=== PATIENT | female | born 1965 | race Caucasian/White ===

== ENCOUNTER 2021-07-09 16:42 | Inpatient (IN) | payer SELFPAY ==
[2021-07-09 16:54] VITALS: BP 204/99; PULSE 99; RESP 18; TEMP 35.7; O2SAT 96; BMI 34.2
--- NOTE | 2021-07-09 17:51 | ECG_ITS ---
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 Measurements Intervals [place] Rate: 89 P: 70 SD: 170 QRS: 92 QRSD: 96 T: 76 QT: 370 QTc: 453 Interpretive Statements SINUS RHYTHM INDETERMINATE AXIS SEPTAL MYOCARDIAL INFARCTION , OF INDETERMINATE AGE [40+ ms Q WAVE IN V1/V2] Compared to ECG 07/09/2021 16:52:05 Indeterminate axis now present Myocardial infarct finding still present Electronically Signed On 07-10-2021 5:35:44 PLASTER MAKER by Pam Davis M.D. [id number]
--- NOTE | 2021-07-09 17:51 | XRR_ITS ---
PROCEDURE INFORMATION: Exam: XR Chest Exam date and time: 07/09/2021 5:51 PM Age: 56 years old Clinical indication: Chest wall pain; Additional info: Cp TECHNIQUE: Imaging protocol: XR of the chest. Views: 1 view. COMPARISON: No relevant prior studies available. FINDINGS: Lungs: Unremarkable. No consolidation. Pleural spaces: Unremarkable. No pleural effusion. No pneumothorax. Heart/Mediastinum: Mild cardiomegaly. Bones/joints: Unremarkable. XR/XR chest 1V portable [id number] IMPRESSION: 1. Negative for infiltrate 2. Mild cardiomegaly.
--- NOTE | 2021-07-09 17:55 | W.ED.CHESTPA ---
HPI - Chest Pain General: Chief Complaint: Chest Pain Stated Complaint: cp Time Seen by Provider: 07/09/21 17:45 Source: patient Mode of arrival: ambulatory Limitations: no limitations History of Present Illness: 56 yo female that states she has beenhaving increase cough and pain for the last 2 days. she has a hx of copd and cad. SHe states that over the last 2 days she has had increased pain especially withher cough. her pain is in her left chest and is sharp in nature and has been constant. Denies fevers. mild dyspnea. phyllis n/v Associated symptoms: Reports dyspnea; Deny abdominal pain, fever(s), nausea or vomiting Review of Systems Const: Denies: fever(s), chills, body aches or change in appetite Eyes: Denies: blurry vision or eye discomfort ENMT: Denies: throat pain or dental pain Card: Reports: chest pain Resp: Reports: dyspnea and wheezing GI: Denies: abdominal pain, nausea, vomiting or diarrhea : Denies: dysuria Musc: Denies: neck pain or back pain Skin/Breast: Denies: rash Neuro: Denies: headache(s) Psych: Denies: depression Patrick/Lymph: Denies: easy bruising All/Imm: Denies: urticaria PFSH ED PFSH: Medical History COPD (chronic obstructive pulmonary disease) Family History (Updated 07/09/21 @ 17:55 by Hi Reddy MD) Other CAD (coronary artery disease) Physical Exam Const: COMMON NORMALS: no acute distress, patient oriented x3 and healthy appearing HENMT: COMMON NORMALS: normocephalic and atraumatic HEAD & SCALP: normocephalic and atraumatic Eye: COMMON NORMALS: Equal, round and reactive pupils present and EOMs intact bilaterally PUPIL: Yes Equal, round and reactive pupils present Neck/C-Spine: COMMON NORMALS: full ROM and supple Chest: COMMONS NORMALS: normal inspection of the chest; negative for normal palpation of entire chest wall (point tender to left chest) Resp: COMMON NORMALS: normal respiratory effort, No retractions, No use of accessory muscles and clear to auscultation bilaterally AUSCULTATION: clear to auscultation bilaterally Cardio: COMMON NORMALS: regular rate, regular rhythm and No murmurs present (Cardio) RATE: regular rate RHYTHM: regular rhythm GI: COMMON NORMALS: Normal to inspection, nondistended, normoactive bowel sounds present, Soft to palpation, non-tender and no masses PALPATION: Yes Soft to palpation Extremity: COMMON NORMALS: normal to inspection and full ROM Neuro: COMMON NORMALS: patient oriented x3, moves all extremities and no focal motor deficits Psych: COMMON NORMALS: mental status grossly normal, Normal thought process present and cooperative THOUGHT PROCESS: Normal thought process present Skin: COMMON NORMALS: no rashes or lesions noted and no wounds GENERAL SKIN EXAM: no rashes or lesions noted Course Vital Signs: Vital signs: Vital Signs Temperature 96.3 F L 07/09/21 16:54 Pulse Rate 108 H 07/09/21 19:42 Respiratory Rate 18 07/09/21 19:42 Blood Pressure 183/90 07/09/21 19:42 Pulse Oximetry 94 07/09/21 19:42 MDM - Chest Pain Medical Decision Making Patient presents here with chest pain does have elevated troponin here ST depression in her EKG consistent with an NSTEMI. She has no ST elevation she is pain-free currently here after morphine. Spoke to hospitalist along with tobacco grader will admit at this time. Patient given Lovenox. Lab Data : 07/09/21 17:54 07/09/21 17:54 Radiology Impressions Chest X-Ray 07/09/21 17:51 IMPRESSION: 1. Negative for infiltrate 2. Mild cardiomegaly. Chest CTA 07/09/21 18:46 IMPRESSION: 1. Negative for pulmonary embolus or airspace infiltrate. 2. Hepatic steatosis. 3. Emphysematous changes. 4. Minimal coronary artery atherosclerotic calcifications. 5. Cholecystectomy. 6. Scattered prominent mediastinal lymph nodes measuring up to 9 mm, nonspecific. Laboratory Results WBC 11.2 10^3/uL (4.0-10.0) H 07/09/21 17:54 RBC 5.25 10^6/uL (4.1-5.3) 07/09/21 17:54 Hgb 16.5 g/dL (11.5-15.3) H 07/09/21 17:54 Hct 48.3 % (37.0-47.0) H 07/09/21 17:54 MCV 92.0 fl (81-99) 07/09/21 17:54 MCH 31.4 pg (28.0-34.0) 07/09/21 17:54 MCHC 34.2 g/dL (30.0-36.0) 07/09/21 17:54 RDW 13.1 % (12.1-15.1) 07/09/21 17:54 Plt Count 205 10^3/cmm (130-400) 07/09/21 17:54 MPV 10.4 fL (7.4-10.4) 07/09/21 17:54 Neut % (Auto) 73.1 % 07/09/21 17:54 Lymph % (Auto) 21.7 % 07/09/21 17:54 Mcdonough % (Auto) 4.0 % 07/09/21 17:54 Eos % (Auto) 0.4 % 07/09/21 17:54 Baso % (Auto) 0.4 % 07/09/21 17:54 Neut # (Auto) 8.16 10^3/uL (1.8-7.7) H 07/09/21 17:54 Lymph # (Auto) 2.4 10^3/uL (0.8-4.8) 07/09/21 17:54 Mcdonough # (Auto) 0.5 10^3/uL (0.2-0.9) 07/09/21 17:54 Eos # (Auto) 0.0 10^3/uL (0.0-0.8) 07/09/21 17:54 Baso # (Auto) 0.1 10^3/uL (0.0-0.1) 07/09/21 17:54 Nucleated RBC % (auto) 0 % 07/09/21 17:54 Nucleated RBCs # 0.0 /100WBC 07/09/21 17:54 Sodium 134 mmol/L (136-145) L 07/09/21 17:54 Potassium 4.5 mmol/L (3.5-5.1) 07/09/21 17:54 Chloride 95 mmol/L (98-107) L 07/09/21 17:54 Carbon Dioxide 23 mmol/L (22-29) 07/09/21 17:54 Anion Gap 20.5 (5-19) H 07/09/21 17:54 BUN 11 mg/dL (6-20) 07/09/21 17:54 Creatinine 0.7 mg/dL (0.5-0.9) 07/09/21 17:54 GFR Calculation 86.9 mL/min (90-130) L 07/09/21 17:54 Glucose 239 mg/dL (65-115) H 07/09/21 17:54 Calculated Osmolality 285 mOsm/kg (285-295) 07/09/21 17:54 Calcium 10.1 mg/dL (8.5-10.5) 07/09/21 17:54 Total Bilirubin 0.3 mg/dL (0.15-1.2) 07/09/21 17:54 AST 39 U/L (0-32) H 07/09/21 17:54 ALT 29 U/L (0-33) 07/09/21 17:54 Alkaline Phosphatase 66 IU/L (35-105) 07/09/21 17:54 Troponin T Baseline 178 ng/L (0-10) H* 07/09/21 17:54 Total Protein 8.0 g/dL (6.6-8.7) 07/09/21 17:54 Albumin 4.9 g/dL (3.5-5.2) 07/09/21 17:54 Globulin 3.1 g/dL (1.3-4.6) 07/09/21 17:54 EKG Data EKG 1: I personally reviewed and interpreted this EKG as follows: EKG interpretation date: 07/09/21 EKG interpretation time: 17:25 Interpretation: nsr hr [address] diffuse st depression qrs 96 qtc 417 EKG 2: I personally reviewed and interpreted this EKG as follows: EKG interpretation date: 07/09/21 EKG interpretation time: 19:18 Interpretation: sinus tach hr [address] diffuse st depression qrs 73 qtc 417 Discharge Plan Discharge Patient Disposition: Admitted As Inpatient Clinical Impression: Non-ST elevation MT (NSTEMI) Condition: Stable Referrals: John Chavez FNP [Primary Care Provider] - Coding Level of Care Code ED Manager Multimedia for Chg Fwd Exam Comprehensive
[2021-07-09 18:00] LABS: Basophils # 0.1 10^3/uL (0.0-0.1); Basophils % 0.4 %; Eosinophils % 0.4 %; Hematocrit 48.3 % (37.0-47.0); Hemoglobin 16.5 g/dL (11.5-15.3); Lymphocytes # 2.4 10^3/uL (0.8-4.8); Lymphocytes % 21.7 %; Mean Corpuscular HGB Conc 34.2 g/dL (30.0-36.0); Mean Corpuscular Hemoglobin 31.4 pg (28.0-34.0); Mean Platelet Volume 10.4 fL (7.4-10.4); Monocytes # 0.5 10^3/uL (0.2-0.9); Neutrophils # 8.16 10^3/uL (1.8-7.7); Neutrophils % 73.1 %; Nucleated Red Blood Cells % 0 %; Platelet Count 205 10^3/cmm (130-400); Red Blood Count 5.25 10^6/uL (4.1-5.3); Red Cell Distribution Width 13.1 % (12.1-15.1); White Blood Count 11.2 10^3/uL (4.0-10.0)
[2021-07-09 18:17] LABS: Alanine Aminotransferase 29 U/L (0-33); Albumin Level 4.9 g/dL (3.5-5.2); Alkaline Phosphatase 66 IU/L (35-105); Anion Gap 20.5 (5-19); Aspartate Amino Transferase 39 U/L (0-32); Blood Urea Nitrogen 11 mg/dL (6-20); Calcium 10.1 mg/dL (8.5-10.5); Carbon Dioxide 23 mmol/L (22-29); Chloride 95 mmol/L (98-107); Globulin 3.1 g/dL (1.3-4.6); Glomerular Filtration Rate 86.9 mL/min (90-130); Glucose 239 mg/dL (65-115); Osmolality Calculated 285 mOsm/kg (285-295); Potassium 4.5 mmol/L (3.5-5.1); Sodium 134 mmol/L (136-145); Total Bilirubin 0.3 mg/dL (0.15-1.2)
[2021-07-09 18:32] VITALS: RESP 16
[2021-07-09] MEDS: morphine 4 mg/mL SDV 1 mL IVP (18:32)
[2021-07-09] MEDS: hyDRALAzine 20 mg/mL INJ 1 mL 10 MG IVP (18:32)
[2021-07-09] MEDS: ondansetron 2 mg/ML SDV 2 mL 4 MG IVP (18:33)
[2021-07-09 18:36] LABS: Troponin(5th) Baseline 178 ng/L (0-10)
[2021-07-09 18:44] VITALS: PULSE 98; RESP 20; O2SAT 98
--- NOTE | 2021-07-09 18:46 | CTR_ITS ---
PROCEDURE INFORMATION: Exam: CTA Chest With Contrast Exam date and time: 07/09/2021 6:46 PM Age: 56 years old Clinical indication: Shortness of breath; Sternal or substernal pain; Prior surgery; Surgery type: Gb; Additional info: SOB TECHNIQUE: Imaging protocol: Computed tomographic angiography of the chest with contrast. 3D rendering (Not supervised by radiologist): MIP and/or 3D reconstructed images were created by the technologist. Radiation optimization: All CT scans at this facility use at least one of these dose optimization techniques: automated exposure control; mA and/or kV adjustment per patient size (includes targeted exams where dose is matched to clinical indication); or iterative reconstruction. Contrast material: OMNI 350; Contrast volume: 64 ml; Contrast route: INTRAVENOUS (IV); COMPARISON: CR (CHEST, ) 07/09/2021 6:18 PM RADIATION DOSE METRICS: Total DLP (mGy-cm): 579.34 FINDINGS: Pulmonary arteries: Normal. No pulmonary emboli. Aorta: Unremarkable. No aortic aneurysm. No aortic dissection. Lungs: Emphysematous changes. Pleural spaces: Unremarkable. No pneumothorax. No pleural effusion. Heart: Minimal coronary artery atherosclerotic calcifications. Lymph nodes: Scattered prominent mediastinal lymph nodes measuring up to 9 mm, nonspecific. Liver: Hepatic steatosis. Gallbladder and bile ducts: Cholecystectomy. Bones/joints: Unremarkable. No acute fracture. Soft tissues: Unremarkable. CT/CT angio chest PE protcl [id number] IMPRESSION: 1. Negative for pulmonary embolus or airspace infiltrate. 2. Hepatic steatosis. 3. Emphysematous changes. 4. Minimal coronary artery atherosclerotic calcifications. 5. Cholecystectomy. 6. Scattered prominent mediastinal lymph nodes measuring up to 9 mm, nonspecific.
[2021-07-09] MEDS: iohexol 350 mg/mL 100 mL Btl IV (19:10)
[2021-07-09 19:42] VITALS: BP 183/90; PULSE 108; RESP 18; O2SAT 94
--- NOTE | 2021-07-09 19:51 | ECG_ITS ---
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 Measurements Intervals [place] Rate: 96 P: 74 IN: 152 QRS: 140 QRSD: 95 T: 74 QT: 376 QTc: 475 Interpretive Statements SINUS RHYTHM POSSIBLE RIGHT VENTRICULAR HYPERTROPHY [SOME/ALL OF: PROMINENT R IN V1, LATE TRANSITION, RAD, SANJAY, SSS] SEPTAL MYOCARDIAL INFARCTION , PROBABLY OLD [40+ ms Q WAVE IN V1/V2] No previous ECG available for comparison Electronically Signed On 07-10-2021 5:48:16 LEGAL EDITOR by Pam Davis M.D. [id number]
[2021-07-09] MEDS: labetalol 5 mg/mL SDV 20mL 10 MG IVP (19:56)
[2021-07-09] MEDS: aspirin 81 mg Chew Tablet 324 MG PO (19:56)
[2021-07-09] MEDS: enoxaparin 80 mg/0.8 mL Syringe SUBCUT (19:56)
[2021-07-09 21:09] LABS: NT Pro B Type Natriuretic Pept 1361 pg/mL (0-125); Thyroid Stimulating Hormone 1.32 uIU/mL (0.27-4.20)
[2021-07-09 21:29] VITALS: BP 144/94; PULSE 73; RESP 18; O2SAT 96
[2021-07-09 21:51] LABS: Troponin 5 2HR 247.2 ng/L (0-10); Troponin 5 2HR Delta 69.2 ABS# (0-10)
--- NOTE | 2021-07-09 22:25 | ECG_ITS ---
[facility] Test Date: 2021-07-09 Pat Name: Allie Ellis Department: Room: 112 Gender: Female Can Reconditioner: : 1965 Requested By: Mohit Morrow Order Number: [id number] Evelyn MD: Spenser Schneider M.D. Measurements Intervals [place] Rate: 107 P: 50 MD: 144 QRS: 17 QRSD: 90 T: 81 QT: 360 QTc: 481 Interpretive Statements SINUS TACHYCARDIA INDETERMINATE AXIS ANTEROSEPTAL MYOCARDIAL INFARCTION , OF INDETERMINATE AGE [40+ ms Q WAVE IN V1-V4] Compared to ECG 07/09/2021 19:18:35 ST (T wave) deviation no longer present Myocardial infarct finding still present Electronically Signed On 07-10-2021 16:01:20 LINTER OPERATOR by Spenser Schneider M.D. [id number]
--- NOTE | 2021-07-09 22:29 | P.HP_ITS ---
Providers/Chief Complaint Admitting Physician: Jimmy Rasmussen MD Primary Care Provider: John Chavez Chief Complaint: cp History of Present Illness The patient is a 56-year-old female who presented to the chief complaint of chest pain which started approximate 8 PM on the very . She states that she was walking in [facility] when it was of gradual onset. She states that she h ad accompanying nausea. She states that the chest pain was localized to the substernal area with radiation to her back as well as her left arm. She describes the pain as sharp and pressure. Since the time of onset it has been intermittent. As worst is rated 8 out of 10 and currently rates 2 out of 10. She states that she took Tylenol which did not improve the pain. She admits to dyspnea, lightheadedness, dizziness, diaphoresis, palpitations with the chest pain. She denies a sensation of rapid heartbeat or sensation of irregular heartbeat. Patient has known history of coronary artery disease but she denies a previous history of SC. She presents for further evaluation Review of Systems General: Reports: 10 or more systems reviewed and unremarkable except in HPI and below Medications/Allergies Home Medications Medication Instructions Recorded Confirmed Last Taken Type Symbicort 07/09/21 07/09/21 02:00 History atenolol 25 mg tablet mg 07/09/21 07/08/21 21:00 History azelastine 137 mcg (0.1 %) nasal INTRANASAL 07/09/21 07/08/21 21:00 History spray aerosol budesonide-formoterol HFA 160 INHALATION 07/09/21 Unknown History mcg-4.5 mcg/actuation aerosol inhaler hydrochlorothiazide 25 mg tablet mg 07/09/21 07/08/21 21:00 History meloxicam 15 mg tablet mg 07/09/21 07/08/21 21:00 History montelukast 10 mg tablet mg 07/09/21 07/08/21 21:00 History PFSH Acute PFSH: Medical History (Updated 07/09/21 @ 22:36 by Mohit Morrow DO) COPD (chronic obstructive pulmonary disease) Non-ST elevation SC (NSTEMI) Family History Other CAD (coronary artery disease) Vitals/I&O/Wt Last Vital Signs Temp 96.3 F L 07/09/21 16:54 Pulse 73 07/09/21 21:29 Resp 18 07/09/21 21:29 BP 144/94 07/09/21 21:29 Pulse Ox 96 07/09/21 21:29 Weight last 48 hrs Weight 79.379 kg Physical Exam Const: COMMON NORMALS: no acute distress, average body habitus, patient oriented x3, no limitations, healthy appearing, alert and well nourished HENMT: COMMON NORMALS: normocephalic and atraumatic NOSE: Normal external nose present and Normal nares present EXTERNAL EAR: Yes external ears normal MOUTH: Normal oral and palatal mucosa present, lip normal and tongue normal Eye: COMMON NORMALS: Equal, round and reactive pupils present, EOMs intact bilaterally, conjunctivae normal, no scleral icterus, no papilledema, normal visual [place] by confrontation and fundi normal bilaterally GENERAL EYE: appearance normal, both eyes and all related structures VISUAL ACUITY: Yes acuity normal Neck/C-Spine: COMMON NORMALS: full ROM, no lymphadenopathy, supple, no meningeal signs, no JVD, Thyroid normal and No carotid bruits Chest: COMMONS NORMALS: normal inspection of the chest, normal palpation of entire chest wall, normal inspection of the breasts and normal palpation of the breasts Resp: COMMON NORMALS: normal respiratory effort, No retractions, No use of accessory muscles, clear to auscultation bilaterally and percussion normal Cardio: COMMON NORMALS: no JVD, regular rate, regular rhythm, S1 normal heart sound present, S2 normal heart sound present, No gallops present (Cardio), No clicks present (Cardio), No murmurs present (Cardio), No rub (Cardio) and Peripheral pulses 2+ throughout GI: COMMON NORMALS: Normal to inspection, nondistended, normoactive bowel sounds present, Soft to palpation, non-tender, No hepatosplenomegaly present, no masses and no bruits : COMMON NORMALS: Yes no CVA tenderness, Yes normal external appearance, Yes normal appearance of the vagina, Yes normal appearance of the cervix, Yes normal bimanual exam, Yes No adnexal tenderness and Yes no masses Back/Pelvis: COMMON NORMALS: no CVA tenderness, thoracic and lumbar spine normal to inspection, no thoracic nor lumbar tenderness, thoraco-lumbar ROM normal and straight leg raise negative bilaterally Extremity: COMMON NORMALS: normal to inspection, full ROM, capillary refill normal, no joint enlargement, no clubbing, cyanosis or edema, no calf tenderness and no pedal edema GENERAL: Yes normal exam except as noted Neuro: COMMON NORMALS: patient oriented x3, CN's II-XII intact bilaterally, moves all extremities, no focal motor deficits, no sensory deficits noted, deep tendon reflexes 2+ bilaterally and gait normal DEEP TENDON REFLEXES: Right triceps reflex intensity grade: 2+, Left triceps reflex intensity grade: 2+, Rt Biceps (C5, C6): 2+, Left biceps reflex intensity grade: 2+, Right brachioradialis reflex intensity grade: 2+, Left brachioradialis reflex intensity grade: 2+, Right patellar reflex intensity grade: 2+, Left patellar reflex intensity grade: 2+, Right ankle reflex intensity grade: 2+ and Left ankle reflex intensity grade: 2+ PUPIL EXAM: Normal pupillary reactivity/response: bilateral, Dilated: bilateral, Pinpoint: bilateral, Mid position: bilateral, Sluggish: bilateral and Fixed/non-reactive: bilateral Psych: COMMON NORMALS: mental status grossly normal, Normal thought process pr esent, cooperative, normal affect, speech normal, activity/motor behavior normal, denies hallucinations, denies homicidal ideation and denies suicidal ideation Skin: COMMON NORMALS: no rashes or lesions noted, no wounds, turgor normal, no jaundice, no petechiae and no mottling Data : 07/09/21 17:54 07/09/21 17:54 A&P Assessment and plan (1) Non-ST elevation SC (NSTEMI): Status: Acute Plan And STEMI. Will monitor patient on telemetry and checks her cardiac enzymes. Magnesium level pending. Check TSH, free T4. In the morning we will recheck EKG and check fasting lipid panel. Aspirin 81 Mill grams by mouth daily plus Lipitor 80 Mill grams by mouth daily at bedtime plus Plavix any 5 Mill grams by mouth daily plus metoprolol XL 25 mg by mouth daily plus Lovenox 80 Mill grams subcutaneously twice a day. Cardiology consult pending History of migraine Mediastinal lymphadenopathy. Outpatient follow up with her primary care physician to schedule CT chest with IV contrast 2 months post discharge Hepatic steatosis Erythrocytosis. Likely sequelae of a history of COPD/smoking. Will monitor hem oglobin level intermittently COPD, not O2 dependent Urinary artery disease. Aspirin 81 Mill grams by mouth daily plus Lipitor 80 Mill grams by mouth daily at bedtime plus Plavix 25 Mill grams by mouth daily plus metoprolol XL 25 Mill grams by mouth daily Diabetes. Will check fasting glucose every before meals and at bedtime and provide insulin sliding scale Hypertension/hypertensive emergency. Metoprolol XL 25 Mill grams by mouth daily Obesity. The patient becomes regarding lifestyle modification Smoker. The patient becomes regarding smoking cessation DVT Proflex is. Lovenox 80 mg subcu tensely twice a day Attestations Medical Necessity Statement*: Hospitalization is medically necessary Coding Level of Care Code Acute Construction Equipment Operator for Mauro Taylor Diagnoses Non-ST elevation SC (NSTEMI) I21.4
[2021-07-09 22:58] LABS: Free T4 Free Thyroxine 1.13 ng/dL (0.82-1.77); Thyroid Stimulating Hormone 1.06 uIU/mL (0.27-4.20)
[2021-07-09 23:00] VITALS: BP 156/85; PULSE 113; RESP 18; O2SAT 95
[2021-07-09 23:08] LABS: Glucose Point of Care 416 mg/dL (70-110)
[2021-07-09] MEDS: clopidogrel 300 mg Tablet PO (23:17)
[2021-07-09] MEDS: insulin lispro 100 unit/1 mL SUBCUT (23:17)
--- NOTE | 2021-07-09 23:51 | ECG_ITS ---
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 Measurements Intervals [place] Rate: 109 P: 72 MT: 152 QRS: 68 QRSD: 73 T: 77 QT: 353 QTc: 476 Interpretive Statements SINUS TACHYCARDIA INDETERMINATE AXIS SEPTAL MYOCARDIAL INFARCTION , OF INDETERMINATE AGE [40+ ms Q WAVE IN V1/V2] ST DEPRESSION, CONSIDER SUBENDOCARDIAL INJURY [0.1+ mV ST DEPRESSION] Compared to ECG 07/09/2021 17:25:12 ST (T wave) deviation now present Sinus rhythm no longer present Myocardial infarct finding still present Electronically Signed On 07-10-2021 5:45:26 X RAY EQUIPMENT SERVICER by Pam Davis M.D. [id number]
[2021-07-09 23:56] LABS: Troponin 5 6HR 330.7 ng/L (0-10); Troponin 5 6HR Delta 152.7 ng/L (0-12)
[2021-07-10] VITALS (27 sets, daily range): BP systolic 94–158; BP diastolic 62–92; PULSE 85–112; RESP 14–33; TEMP 36.1–37.1; O2SAT 90–96; BMI 31.2
[2021-07-10 04:02] LABS: Basophils % 0.3 %; Hematocrit 46.3 % (37.0-47.0); Hemoglobin 15.7 g/dL (11.5-15.3); Lymphocytes # 1.4 10^3/uL (0.8-4.8); Lymphocytes % 12.8 %; Mean Corpuscular HGB Conc 33.9 g/dL (30.0-36.0); Mean Corpuscular Hemoglobin 31.4 pg (28.0-34.0); Mean Corpuscular Volume 92.6 fl (81-99); Mean Platelet Volume 10.8 fL (7.4-10.4); Monocytes # 0.1 10^3/uL (0.2-0.9); Monocytes % 0.9 %; Neutrophils # 9.46 10^3/uL (1.8-7.7); Neutrophils % 85.6 %; Nucleated Red Blood Cells % 0 %; Platelet Count 201 10^3/cmm (130-400); Red Cell Distribution Width 13.2 % (12.1-15.1)
[2021-07-10 04:21] LABS: Chol HDL Ratio 6.53 mg/dL (0.0-4.40); Cholesterol 294 mg/dL (0-200); HDL Cholesterol 45 mg/dL (60-100); Triglycerides 449 mg/dL (0-150)
--- NOTE | 2021-07-10 04:25 | ECG_ITS ---
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 Measurements Intervals [place] Rate: 100 P: 65 NE: 186 QRS: 18 QRSD: 89 T: 88 QT: 375 QTc: 484 Interpretive Statements SINUS TACHYCARDIA POSSIBLE LEFT ATRIAL ENLARGEMENT [-0.1mV P-WAVE IN V1/V2] INDETERMINATE AXIS POSSIBLE RIGHT VENTRICULAR CONDUCTION DELAY [RSR (QR) IN V1/V2] SEPTAL MYOCARDIAL INFARCTION , OF INDETERMINATE AGE [40+ ms Q WAVE IN V1/V2] Compared to ECG 07/09/2021 23:32:11 No significant changes Electronically Signed On 07-10-2021 16:06:32 STRUCTURAL FITTER by Spenser Schneider M.D. [email or web address] [email or web address] Throttle Gamesun[email or web address]/[id number]
[2021-07-10 04:33] LABS: Blood Urea Nitrogen 14 mg/dL (6-20); Calcium 10.3 mg/dL (8.5-10.5); Carbon Dioxide 19 mmol/L (22-29); Chloride 97 mmol/L (98-107); Glomerular Filtration Rate 74.5 mL/min (90-130); Glucose 314 mg/dL (65-115); Magnesium 1.8 mg/dL (1.7-2.3); Osmolality Calculated 296 mOsm/kg (285-295); Sodium 137 mmol/L (136-145)
--- NOTE | 2021-07-10 04:37 | USCV_ITS ---
Caleb Allie Age: 56 Gender: F : 1965 Exam Date: 07/10/2021 06:22 Ordering Phys: Jimmy Rasmussen MD Technologist: Brian Persaud [place] [facility] [place]: [place] BP: 134 / 82 HR: 100 Rhythm: Sinus Technical Quality: Adequate MEASUREMENTS (Male / Female) Normal Values 2D ECHO LV Diastolic Diameter PLAX 3.4 cm 4.2 - 5.9 / 3.9 - 5.3 cm LV Systolic Diameter PLAX 2.3 cm IVS Diastolic Thickness 1.0 cm 0.6 - 1.0 / 0.6 - 0.9 cm IVS Systolic Thickness 1.6 cm LVPW Diastolic Thickness 0.9 cm 0.6 - 1.0 / 0.6 - 0.9 cm LVPW Systolic Thickness 1.4 cm LVOT Diameter 2.1 cm LV Ejection Fraction 2D Teich 62.9 % LV Ejection Fraction MOD 2C 73.0 % LV Ejection Fraction 2C AL 73.0 % LA Diameter 3.0 cm Aorta at Sinotubular Diameter 2.1 cm M-MODE LV Diastolic Diameter MM 3.1 cm 4.2 - 5.9 / 3.9 - 5.3 cm LV Systolic Diameter MM 1.9 cm LV Ejection Fraction MM Teich 70.6 % IVS Diastolic Thickness MM 1.3 cm 0.6 - 1.0 / 0.6 - 0.9 cm IVS Systolic Thickness MM 1.8 cm LVPW Diastolic Thickness MM 1.4 cm 0.6 - 1.0 / 0.6 - 0.9 cm LVPW Systolic Thickness MM 2.1 cm RV Diastolic Diameter MM 2.3 cm Aortic Annulus Diameter 2.5 cm LA Ao Ratio MM 1.3 MV E Point Septal Separation 1.3 cm DOPPLER AV Peak Velocity 177.7 cm/s LVOT Peak Velocity 107.0 cm/s AV Area Cont Eq vti 1.8 cm squared AV Area Cont Eq pk 2.0 cm squared MV Area PHT 5.0 cm squared Mitral E to A Ratio 0.6 MV E' Velocity 54.8 cm/s Mitral E to MV E' Ratio 8.5 Mitral E to LV E' Lateral Ratio 8.6 Mitral E to LV E' Septal Ratio 8.3 TR Peak Velocity 200.3 cm/s TR Peak Gradient 16.1 mmHg TV Peak E Velocity 63.0 cm/s Right Atrial Pressure 3.0 mmHg Pulmonary Artery Systolic Pressu 19.1 mmHg PV Peak Velocity 136.0 cm/s FINDINGS Left Ventricle Normal left ventricular size and systolic function, EF 68 %. No regional wall motion abnormalities. Mild left ventricular hypertrophy. Grade I/IV diastolic dysfunction (abnormal relaxation filling pattern), normal to mildly elevated filling pressures. Right Ventricle The right ventricle is normal in size and function. Right Atrium The right atrium is normal in size. Left Atrium The left atrium is normal in size. Mitral Valve Thickened mitral valve. Trace mitral valve regurgitation. Aortic Valve Thickened aortic valve. Tricuspid Valve No gross abnormalities noted Pulmonic Valve Pulmonic valve not well visualized. Pericardium Normal pericardium without effusion. Aorta Normal ascending aorta dimension. CONCLUSIONS Normal left ventricular size and systolic function, EF 68 %. No regional wall motion abnormalities. Mild left ventricular hypertrophy. Grade I/IV diastolic dysfunction (abnormal relaxation filling pattern), normal to mildly elevated filling pressures. Thickened mitral valve. Trace mitral valve regurgitation. Thickened aortic valve. There is no pericardial effusion. There are no intracardiac masses. The right-sided structures could not be visualized well No previous study is available for comparison. Dr Bernardino Mckinley MD [facility] (Electronically Signed) Final Date: 10 July 2021 14:07 S
[2021-07-10 04:48] LABS: Anion Gap 25.2 (5-19); Potassium 4.2 mmol/L (3.5-5.1)
[2021-07-10 05:05] LABS: LDL Cholesterol Direct 180 mg/dL (0-100)
--- NOTE | 2021-07-10 05:51 | PC.NURSE ---
pt transferred from ED at about 2145. pt rested quietly remainder of shift. no complaints of pain. NPO since midnight. VSS. pt up to bathroom with standby assist. adequate UOP. frequent rounding done. all needs met.
[2021-07-10 07:03] LABS: Glucose Point of Care 280 mg/dL (70-110)
--- NOTE | 2021-07-10 08:14 | XACV_ITS ---
Exam Room: 2 Ht: 152 cm Wt: 73 kg BSA: 1.78 m2 Gender: Female : 1965 Any Known Allergies: Other Exam Priority: Routine Procedure(s): Procedure Description: Diagnostic procedure Procedure Description: PCI procedure Procedure Description: Drug Eluting Coronary Stent Procedure Description: PTCA Procedure Description: Miscellaneous Procedure Description: ACT Procedure Description: Coronary Angiography Diagnostic Cath Status: Urgent Diagnostic Findings * Mid Circumflex/ OM 1: moderate 50% stenosis, ONI: 3 flow. * INDICATION: NSTEMI. * Left Main has no disease. * Left Anterior Descending has no disease. * Mid Right Coronary Artery: moderate 50% stenosis, ONI: 3 flow. * Proximal Circumflex: severe 90% stenosis, ONI: 3 flow. * Coronary angiography shows right dominance. PCI Status: Urgent PCI Indication: NSTE - ACS Interventional Findings * Procedure Note: We engaged left main artery with XB 3.0 guide catheter. 0.014 run-through guidewire was used to cross the stenosis in proximal left circumflex artery and was put on distal vessel. We predilated the stenosis with 2.5 x 12 mm compliant balloon. This was followed by placement of 3.5 x 18 mm resolute [place] drug-eluting stent. This time final angiogram was performed that showed excellent stent expansion, no residual stenosis and ONI-3 flow. Guidewire and guide catheter were removed. Patient left the Doll Eye Setter in a stable condition.. * Proximal Circumflex: 90% stenosis treated with a AB TREK 2.50X12 RX BALLOON, and MDT R [place] 3.5X18 NICO. 0% residual stenosis, ONI: 3 flow. Conclusions 1. Severe proximal left circumflex artery stenosis status post revascularization with NICO x1.. 2. Moderate mid RCA and OM1 stenosis. Medical management for those at this time. 3. Proximal Circumflex was treated with a Balloon, and Drug Eluting Stent. Recommendations * Aspirin and Plavix for at least 1 year. * Aggressive risk factor modification. * Smoking cessation advised. * High intensity statin therapy. * Mid RCA and OM1 stenosis are moderate. Will be managed medically at this time. If patient continues having symptoms, can consider outpatient stress test. * Cardiology follow-up as outpatient in 4 weeks. Interventional RX Recommendation: PCI w/o planned CABG Diagnostic RX Recommendation: PCI w/o planned CABG Anticoagulation: Heparin Pressures Phase:Rest AO : 119 / 74 ( 95 ) @ 12:26:00 PM Clinical Evaluation EBL: 5mL-10mL Procedural Details Procedure Consent Obtained. Admit Source: In Patient. Pre-Procedure Time Out. Identified patient by full name and date of as verbalized by the patient/guarantor. Does the consent match the physician's order: Yes. Accurate & Complete Informed Consent: Yes. Inpatient/Outpatient History & Physical on Chart: Yes. If H&P is completed, is and addenduem needed: No; If yes, is the addendum complete: No. Visualize and Verify Site with Patient/Guarantor: N/A. Relevant Radiology Images available: No. The risks, benefits, and alternatives of sedation and/or procedure were discussed by physician. The patient agrees to continue. Procedure started. [facility] Clinical Fraility Score: 2: Well. Doll Eye Setter Indications: Nstemi. Chest Pain Symptom Assessment: Typical Angina Symptoms. Correct patient, site and procedure confirmed by cath team. Current diagnosis: NSTEMI. PERRLA. Strong, equal hand tree topper bilaterally. Lungs clear x 5 lobes. IV Site on Arrival: 20 gauge in the left anticubital. IV Fluids: 0.9% NaCl at KVO. 0 mL infused prior to labor and delivery registered nurse. Pre Procedural Pulses: bilateral radial was 3+. Oxygen started at 2liters/min via nasal canula. right radial was prepped with chloroprep then draped in the usual sterile fashion. Physician notified. Baseline sample Acquired. HR: 91 BPM. Physician arrived. Physician scrubbed in. Immediate Pre-Procedure Time Out. Correct Patient: Yes; Correct Procedure: Yes; Correct Site: Yes; Correct Patient Position: Yes; Correct Supplies: Yes; Dried Flammable Prep: Yes; Blood Products Available: No;. Lidocaine 1% infiltrated to the right radial. Arterial access obtained. A 5 polish TIG catheter in over wire. Multiple views taken of left coronary artery. Catheter removed over the glidewire. A 5 polish JR4 catheter in over wire. Catheter redirected to the RCA. Multiple views taken of right coronary artery. Catheter removed over the glide wire. 6 polish XB 3 guide catheter was inserted over the wire. Runthrough guidewire was advanced through the guide catheter to lesion in the mid Circ. Guidewire advanced across lesion. Balloon inserted to lesion in the mid Circ. Inflation number: 1 The AB TREK 2.50X12 RX BALLOON was reinflated across the Prox CX, to 12 SAL for 0:03 seconds. Inflation number: 2 The AB TREK 2.50X12 RX BALLOON was reinflated across the Prox CX, to 12 SAL for 0:20 seconds. Inflation number: 3 The AB TREK 2.50X12 RX BALLOON was reinflated across the Prox CX, to 12 SAL for 0:11 seconds. Balloon out. Stent inserted to lesion in the mid Circ. Inflation Number : 4 Paola Hollis [place] 3.5X18 NICO -Lot Number# was prepped and advanced across the Prox CX. The stent was deployed at 12 SAL for 0:24 seconds. Stent balloon out over wire. Angiography performed. Results checked. Runthrough wire out. Angiography performed. ACT drawn. Results 256 seconds. Therapeutic limits - pre-heparin administration 90-150 seconds and monitoring heparin during a vascular procedure >250 seconds. Guide catheter out over standard wire. Standard wire out. A TR Band was successful obtaining hemostatsis at the Right Radial artery insertion site. Post Procedure: Pulses reassessed and unchanged. PERRLA. Strong, equal hand tree topper bilaterally. No VTE prophylaxis required. Medication's Wasted: Lidocaine 1% = 18 mL. Medication's Wasted: Heparin = 3000 unit. Medication's Wasted: Nitro = 49.8 mg. Medication's Wasted: Benadryl = 25 mg. Total IV fluids: 40 mL. PCI Indication: Nstemi, Severe proximal circumflex stenosis. Post-op diagnosis: Severe proximal circumflex stenosis. Complications: None. Estimated blood loss: 5mL-10mL. Responsiveness - Normal response to verbal stimuli; alert and oriented, PERRLA. Airway - Unaffected, no intervention required; spontaneous ventilation. Circulation: W/N/L, pulses unchanged. Nausea/Vomiting: No. Procedure completed. Patient transferred by wheelchair to 1st floor. Access Site Site: Right Radial artery Sheath Size: 6 Fr Hemostasis Method: TR Band Hemostasis Success: Successful Procedure Medications Start: 12:05 PM Stop: 12:05 PM Medication: Diphendryamine Amount: 25 mg Route: I.V. Start: 12:09 PM Stop: 12:09 PM Medication: Versed Amount: 1 mg Route: I.V. Start: 12:09 PM Stop: 12:09 PM Medication: Fentanyl Amount: 50 mcg Route: I.V. Start: 12:12 PM Stop: 12:12 PM Medication: Versed Amount: 1 mg Route: I.V. Start: 12:12 PM Stop: 12:12 PM Medication: Fentanyl Amount: 50 mcg Route: I.V. Start: 12:12 PM Stop: 12:12 PM Medication: Nitrogylcerin Amount: 200 mcg Start: 12:13 PM Stop: 12:13 PM Medication: Heparin Amount: 5000 units Route: I.V. Start: 12:21 PM Stop: 12:21 PM Medication: Heparin Amount: 3000 units Route: I.V. I, the attending physician, have reviewed and verified all procedure medications. Yes, all medications given per verbal order History/Risk Factors Hypertension: Yes Dyslipidemia: No Peripheral Arterial Disease (PAD): No Myocardial Infarction (NC): No Obesity: No Renal Disease: No Tobacco Use: Never Prior Interventions PCI: Yes CABG: Yes Valve Surgery: No Report Signatures Finalized by Spenser Schneider MD on 07/15/2021 12:15 PM
--- NOTE | 2021-07-10 08:26 | PM.CONSULT ---
Providers/Reason For Consult Consulting Physician/Specialty*: Spenser Schneider MD/Cardiology Reason for Consult*: NSTEMI Requesting Physician: Dr Reddy Attending Physician: Radu Rodriguez MD Primary Care Provider: John Cahvez History of Present Illness History of Present Illness Allie Ellis is a 56 year old female with past medical history of hypertension and diabetes has presented with 1 day of chest discomfort. According to patient she was walking in the [employer] night before her presentation when started feeling substernal chest pressure radiating to the left arm. It eased on rest however never went away. She came to the emergency room there with the initial troponin was 178. At 6 hours a trended up to 330. EKG shows diffuse ST depressions. She is chest pain-free at this time. No prior history of cardiac disease however has significant family history of premature CAD. Review of Systems Const: Denies: fever(s), chills, body aches or change in appetite Eyes: Denies: blurry vision or eye discomfort ENMT: Denies: throat pain or dental pain Card: Reports: chest pain Resp: Reports: dyspnea and wheezing GI: Denies: abdominal pain, nausea, vomiting or diarrhea : Denies: dysuria Musc: Denies: neck pain or back pain Skin/Breast: Denies: rash Neuro: Denies: headache(s) Psych: Denies: depression Patrick/Lymph: Denies: easy bruising All/Imm: Denies: urticaria Medications/Allergies Home Medications Medication Instructions Recorded Confirmed Last Taken Type Symbicort 1 puff INHALATION DAILY 07/09/21 07/10/21 07/09/21 02:00 History atenolol 25 mg tablet 25 mg PO DAILY 07/09/21 07/09/21 07/08/21 21:00 History azelastine 137 mcg (0.1 %) nasal 2 spray INTRANASAL BID 07/09/21 07/09/21 07/08/21 21:00 History spray aerosol budesonide-formoterol HFA 160 2 puff INHALATION DIRECTED PRN 07/09/21 07/09/21 Unknown History mcg-4.5 mcg/actuation aerosol inhaler hydrochlorothiazide 25 mg tablet 25 mg PO DAILY 07/09/21 07/09/21 07/08/21 21:00 History meloxicam 15 mg tablet 25 mg PO DAILY 07/09/21 07/09/21 07/08/21 21:00 History montelukast 10 mg tablet 10 mg PO DAILY 07/09/21 07/09/21 07/08/21 21:00 History sumatriptan succinate 50 mg tablet 50 mg PO DIRECTED PRN 07/09/21 07/09/21 07/09/21 History 0900 Allergies Allergy/AdvReac Type Severity Reaction Status Date / Time amoxicillin Allergy ALGY-Rash Verified 07/10/21 00:24 Current Medications Generic Name Dose Route Start Last Admin Trade Name Derrick PRN Reason Stop Dose Admin Insulin Human Lispro 0 unit 07/09/21 22:30 07/09/21 23:17 Insulin Lispro 100 Unit/1 Ml SUBCUT 9 unit BEDTIME JAY Administration Protocol PFSH Acute PFSH: Medical History COPD (chronic obstructive pulmonary disease) Non-ST elevation [place] (NSTEMI) Family History Other CAD (coronary artery disease) Vitals/I&O/Wt Last Vital Signs Temp 98.5 F 07/10/21 07:00 Pulse 107 H 07/10/21 07:41 Resp 20 H 07/10/21 07:41 BP 146/86 07/10/21 07:00 Pulse Ox 95 07/10/21 07:41 07/09/21 07/10/21 07/10/21 22:59 06:59 14:59 Intake Total 400 / 400 Balance 400 / 400 Weight last 48 hrs Weight 160 lb Weight 175 lb Physical Exam Narrative: GENERAL: Patient is alert, awake and oriented x3. [] NECK: No jugular vein distension. [] HEENT: No cyanosis. No icterus. No pallor. [] HEART: Regular S1 and S2. No murmur, rub or gallop. [] LUNGS: Clear to auscultate bilaterally. [] ABDOMEN: Soft, nontender and nondistended. Positive bowel sounds. No guarding, rebound or tenderness. [] CENTRAL NERVOUS SYSTEM: Grossly nonfocal. [] EXTREMITIES: Lower extremities with 1+ edema bilaterally. Pulses palpable in the lower extremities, both dorsalis pedis and posterior tibial. [] Data : 07/10/21 03:45 07/10/21 03:45 A&P Assessment and plan (1) Non-ST elevation [place] (NSTEMI): Status: Acute (2) COPD (chronic obstructive pulmonary disease): Status: Acute (3) Hypertension: Status: Acute (4) Diabetes: Status: Acute Plan Patient has typical chest pain symptoms and has multiple coronary artery disease risk factors. She had significant troponin elevation consistent with non-ST elevation [place]. We will proceed with coronary angiogram with possible percutaneous coronary intervention. I had a detailed discussion with patient regarding risk and benefit of the procedure. She understands the risks and benefits and wants to proceed with the procedure. Continue aspirin and Plavix. Continue Lovenox. Order echocardiogram. Keep patient n.p.o. for the procedure. Thank you for involving us with care of this patient. We will continue to follow. Please call with questions. Coding Level of Care Code Acute Assessment Technician for Mauro Taylor Diagnoses Non-ST elevation [place] (NSTEMI) I21.4 COPD (chronic obstructive pulmonary disease) J44.9 Hypertension I10 Diabetes E11.9
--- NOTE | 2021-07-10 08:37 | PC.NURSE ---
Spoke with Dr Schneider with concerns of giving lovenox at this time due to procedure time at 1000 instructions to hold at this time also spoke with him about giving full 12 units of insulin due to NPO status Instructions to Give half sliding scale does of 6 units
[2021-07-10] MEDS: clopidogrel 75 mg Tablet PO (09:06)
[2021-07-10] MEDS: sennosides-docusate Tablet 1 TAB PO (09:06)
[2021-07-10] MEDS: metoprolol succinate ER (24 HR) 25 mg Tablet PO (09:07)
[2021-07-10] MEDS: aspirin 81 mg EC Tablet PO (09:07)
[2021-07-10] MEDS: insulin lispro 100 unit/1 mL SUBCUT ×3 (09:08→20:39)
--- NOTE | 2021-07-10 09:44 | PC.NURSE ---
Patient refused atorvastatin. States it makes her very sick to take.
[2021-07-10] MEDS: nicotine 7 mg Patch 1 PATCH TRANSDERMA (09:45)
--- NOTE | 2021-07-10 10:36 | PC.CHAP ---
Pastoral Care Encounter/Spiritual Assessment Type of Contact [] Declined lens generator visit [] Patient/Family/Request visit [] Outpatient visit [] Follow-up visit [] Physician referral [] Code/Alert [x] Routine visit [] Staff referral [] Actively dying [] Patient sleeping [] Family support [] [] Out of room [] Palliative care [] [] Receiving care in room [] Pre-surgical visit [] Trauma [] Long length of stay [] ICU visit [] Other: Relational/Emotional Strength [] Patient feels connected with others/family/visitors/staff [] Distress [] Loneliness/isolation [] Abandonment Spirituality of Patient [] Person of Karon [] Attends Alevism of their Karon [] Believes in Prayer [] Reads Bible or Buddhist materials [] There are Spiritual issues to be addressed Videogame Designer Interventions [x] Prayer [x] Active listening [x] Non-anxious presence [x] Spiritual/emotional support [] Crisis/trauma care [] Spiritual counseling [] Bereavement support [] Provided bereavement packet [] Provided Bible/devotional materials [] Provided toy/stuffed animal, coloring book to patient or family member [] Provided Communion [] Anointing/[place] [] Salvation [x] Completed spiritual assessment [] Other: Impact on Illness or Injury [] Angry [] Fearful [] Anxious [] Often cries [] Exhaustion [] Unable to work [] Unable to attend yazidism [] Unable to walk/stand [] Unable to read [] Unable to drive [] Unable to eat/drink [] Unable to sleep [] Unable to be with family [] Patient intubated [] Other: Summary delightful lady... Time spent with patient 10 min
--- NOTE | 2021-07-10 10:37 | P.PN_ITS ---
Subjective Subjective: Patient was seen and examined this morning, currently she is denying any chest pain shortness of breath, Overnight vitals and labs have been reviewed. Medications: Medication Review Details: Generic Name Dose Route Start Last Admin Trade Name Derrick PRN Reason Stop Dose Admin Aspirin 81 mg 07/10/21 09:00 07/10/21 09:07 Aspirin 81 Mg Ec Tablet PO 81 mg DAILY JAY Administration Atorvastatin Calci um 80 mg 07/10/21 09:00 07/10/21 09:44 Atorvastatin 40 Mg Tablet PO Not Given DAILY JAY Clopidogrel Bisulf ate 75 mg 07/10/21 09:00 07/10/21 09:06 Clopidogrel 75 M g Tablet PO 75 mg DAILY JAY Administration Insulin Human Lisp ro 0 unit 07/09/21 22:30 07/09/21 23:17 Insulin Lispro 1 00 Unit/1 Ml SUBCUT 9 unit BEDTIME JAY Administration Protocol Insulin Human Lisp ro 0 unit 07/10/21 08:00 07/10/21 09:08 Insulin Lispro 1 00 Unit/1 Ml SUBCUT 6 unit TIDWM JAY Administration Protocol Metoprolol Succina te 25 mg 07/10/21 09:00 07/10/21 09:07 Metoprolol Succi yosi Er (24 Hr) 25 Mg Tablet PO 25 mg DAILY JAY Administration Nicotine 1 patch 07/10/21 09:00 07/10/21 09:45 Nicotine 7 Mg Pa tc TRANSDERMA 1 patch DAILY JAY Administration Senna/Docusate Sod ium 1 tab 07/10/21 09:00 07/10/21 09:06 Sennosides-Docus ate Tablet PO 1 tab DAILY JAY Administration Vitals/I&O/Wt Last Vital Signs Temp 98.5 F 07/10/21 07:00 Pulse 107 H 07/10/21 07:41 Resp 20 H 07/10/21 07:41 BP 146/86 07/10/21 07:00 Pulse Ox 95 07/10/21 07:41 07/09/21 07/10/21 07/10/21 22:59 06:59 14:59 Intake Total 400 / 400 Balance 400 / 400 Weight last 48 hrs Weight 72.575 kg Weight 79.379 kg Physical Exam Const: COMMON NORMALS: patient oriented x3 HENMT: COMMON NORMALS: normocephalic and atraumatic HEAD & SCALP: normocephalic and atraumatic Resp: COMMON NORMALS: normal respiratory effort, No retractions, No use of accessory muscles and clear to auscultation bilaterally EFFORT & INSPECTION: Yes symmetric chest movement AUSCULTATION: clear to auscultation bilaterally Cardio: COMMON NORMALS: regular rate, regular rhythm, S1 normal heart sound present, S2 normal heart sound present, No gallops present (Cardio), No murmurs present (Cardio), No rub (Cardio) and Peripheral pulses 2+ throughout RATE: regular rate RHYTHM: regular rhythm HEART SOUNDS: S1 normal heart sound present and S2 normal heart sound present PERIPHERAL PULSES: Peripheral pulses 2+ throughout GI: COMMON NORMALS: Normal to inspection, nondistended, normoactive bowel sounds present, Soft to palpation, non-tender, No hepatosplenomegaly present and no masses AUSCULTATION: Yes normoactive bowel sounds PALPATION: Yes Soft to palpation and Yes No hepatosplenomegaly present RECTAL EXAM: deferred Extremity: COMMON NORMALS: no clubbing, cyanosis or edema and no pedal edema Neuro: COMMON NORMALS: patient oriented x3 Data : 07/10/21 03:45 07/10/21 03:45 A&P Assessment and plan (1) Non-ST elevation [place] (NSTEMI): Status: Acute Plan 56-year-old female with past medical history of hypertension, dyslipidemia, diabetes she was on Metformin before stopped using it because of GI upset , obesity, came in with chief complaint of, worsening lt sided chest pain, going on for the last few weeks, describes the pain as sharp pressure-like substernal radiating to left arm as well as neck worse with exertion relieved with rest. Assessment #NSTEMI: Troponin trend with significant delta EKG: Sinus tachycardia, with significant ST depression in lead II, III, aVF, V4 - V6 Serial EKG has shown dynamic ST-T wave changes 2D echo Telemetry monitoring TSH: 1.06 HbA1c Lipid panel: T , total cholesterol 294, LDL 180, HDL 45 Currently on ACS protocol continue aspirin Plavix statin beta-daxa, therapeutic anticoagulation Sublingual nitro as needed Currently due for cardiac cath today. #Diabetes: Follow HbA1c SSI, FSG, carbohydrate consistent diet #Hypertension: Continue home atenolol and hydrochlorothiazide # History of migraine: #Mediastinal lymphadenopathy. Outpatient follow up with her primary care physician to schedule CT chest with IV contrast 2 months post discharge #COPD: Currently not in exacerbation. Duo nebs PRN . Not on home oxygen # Obesity. Counseled regarding lifestyle modification # Smoker. Counseled regarding smoking cessation. On Nicotine patch # DVT Proflex is. Lovenox 80 mg subcu tensely twice a day Attestations Medical Necessity Statement*: Patient is still in hospital for management of NSTEMI. Time Spent in Patient Care: Greater than 35 minutes (>than 50% of time spent in counselling and/or direct pt care on unit) . Coding Level of Care Code Acute Clip On Sunglasses Assembler for g Fwd Exam Detailed Diagnoses Non-ST elevation [place] (NSTEMI) I21.4
[2021-07-10 10:50] LABS: Glucose Point of Care 236 mg/dL (70-110)
--- NOTE | 2021-07-10 11:58 | PC.NURSE ---
Patient left floor for procedure. Patient now in medical laboratory technician.
--- NOTE | 2021-07-10 12:06 | W.PM.OPSUD ---
Surgery/Procedure H&P Update DATE OF PROCEDURE: July 10, 2021 DATE H&P PERFORMED: 07/09/21 H&P UPDATE INFORMATION: I have reviewed H&P completed within last 30 days, I have examined patient prior to procedure and No changes to prior documentation PREOP DIAGNOSIS: NSTEMI PRIMARY INDICATION FOR PROCEDURE: NSTEMI PLANNED PROCEDURE: Left heart cath with possible percutaneous coronary intervention PATIENT REASSESSED PRIOR TO SEDATION, WITH NO CHANGE NOTED: Yes PHYSICAL EXAM: alert, oriented x 3, clear to auscultation bilaterally and regular rate & rhythm AIRWAY EVAL/ANESTHESIA PLAN: ASA III, Monitored Anesthesia, Local Anesthesia, Risks, benefits & alternatives of sedation and/or procedure discussed and Patient agrees to continue as planned
--- NOTE | 2021-07-10 12:40 | PC.NURSE ---
patient back to room 112-[address] to right radial no hematoma noted
--- NOTE | 2021-07-10 12:44 | PM.MISC ---
Miscellaneous Note Purpose of Documentation: Brief procedure note Note: Left main artery: Patent LAD: Patent LCx: Has severe proximal vessel 90% stenosis s/p PCI with NICO X1. OM is a large vessel and has a moderate 40% stenosis RCA: Medium sized vessel. Has mid vessel moderate 50% stenosis Recommendations: Aspirin and Plavix for atleast 1 year Aggresive risk factor modification
[2021-07-10 17:26] LABS: Glucose Point of Care 192 mg/dL (70-110)
--- NOTE | 2021-07-10 17:47 | PC.NURSE ---
This Rn agrees with all documentation and medication administration by student nurse Archana Bernabe
--- NOTE | 2021-07-10 19:56 | PC.NURSE ---
Patient has home Symbicort brought in from family member. Dr. Morrow ordered okay for patient to use home inhaler and to follow home dose and frequency of medication.
[2021-07-10 20:32] LABS: Glucose Point of Care 243 mg/dL (70-110)
[2021-07-10] MEDS: acetaminophen 325 mg Tablet 650 MG PO (23:59)
[2021-07-10] MEDS: temazepam 15 mg Capsule PO (23:59)
[2021-07-11 04:15] VITALS: BP 140/73; PULSE 99; RESP 18; TEMP 36.6; O2SAT 94
[2021-07-11 06:00] VITALS: PULSE 84
[2021-07-11 06:40] LABS: Glucose Point of Care 197 mg/dL (70-110)
[2021-07-11] MEDS: insulin lispro 100 unit/1 mL SUBCUT (07:52)
--- NOTE | 2021-07-11 08:03 | P.DS_ITS ---
Discharge Providers Date of Admission: 07/09/21 22:04 Date of Discharge: July 11, 2021 Attending Provider at Admission: Jimmy Rasmussen MD Attending Provider at Discharge: Radu Rodriguez MD Primary Care Provider: John Chavez Diagnoses at Discharge Discharge Diagnosis (1) Non-ST elevation CT (NSTEMI): Status: Acute Reason for Visit Reason for Visit: cp Hospital Course Hospital Course 56-year-old female?with past medical history of hypertension ,diabetes , obesity , dyslipidemia, migraine ,chronic smoker, Presented with chief complaint of worsening lt sided chest pain, going on for the last few weeks, describes the pain as sharp pressure-like substernal radiating to left arm as well as neck worse with exertion relieved with rest.On the day of admission chest pain which started approximate 8 PM on the very 022.? She states that she was walking in [employer] when it was of gradual onset.? She states that she had accompanying nausea.? She states that the chest pain was localized to the substernal area with radiation to her back as well as her left arm.? She describes the pain as sharp and pressure.? Since the time of onset it has been intermittent.? As worst is rated 8 out of 10 and currently rates 2 out of 10.? She states that she took Tylenol which did not improve the pain.? She admits to dyspnea, lightheadedness, dizziness, diaphoresis, palpitations with the chest pain.? She denies a sensation of rapid heartbeat or sensation of irregular heartbeat.? Patient has known history of coronary artery disease but she denies a previous history of CT. Upon arrival in the ER she was worked up for above-mentioned complaint: She was admitted for the management of NSTEMI: Significant troponin trend with significant delta. EKG: Sinus tachycardia, with significant ST depression in lead II, III, aVF, V4 -? V6, Serial EKG has shown dynamic ST-T wave changes, 2D echo: Normal left ventricular size and systolic function, EF 68 %. No ?regional wall motion abnormalities. Mild left ventricular hypertrophy. Grade I/IV diastolic dysfunction (abnormal ?relaxation filling pattern), normal to mildly elevated filling pressures. Thickened mitral valve. Trace mitral valve regurgitation. ?Thickened aortic valve. ?There is no pericardial effusion.. There are no intracardiac masses. ?The right-sided structures could not be visualized well. Patient was kept on ACS protocol during the hospital stay, she was kept on aspirin Plavix statin beta-daxa, therapeutic anticoagulation, sublingual nitro as needed, underwent cardiac cath : Coronary angiogram showed: Left main artery: Patent LAD: Patent LCx: Has severe proximal vessel 90% st enosis ?OM is a large vessel and has a moderate 40% stenosis RCA: Medium sized vessel. Has mid vessel moderate 50% stenosis. s/p PCI with NICO X1. px LCx. Postprocedure patient did well, she remained chest pain-free, patient was discharged on aspirin Plavix statin Beta-daxa. She was not in favor of taking Lipitor as she had developed abdominal discomfort with it in the past, she was discharged on simvastatin 20 mg p.o. daily, patient will have to continue with aspirin and Plavix for a year. Patient responded well to above medical management she was discharged in stable condition to home she will continue to follow with the primary care physician as well as cardiology as an outpatient. Physical Exam Const: COMMON NORMALS: patient oriented x3 HENMT: COMMON NORMALS: normocephalic, atraumatic, hearing grossly normal bilaterally and external ears normal HEAD & SCALP: normocephalic and atraumatic EXTERNAL EAR: Yes external ears normal Eye: COMMON NORMALS: no scleral icterus GENERAL EYE: appearance normal, both eyes and all related structures Chest: COMMONS NORMALS: normal inspection of the chest and normal palpation of entire chest wall CHEST: Yes Symmetrical chest wall rise Resp: COMMON NORMALS: normal respiratory effort, No retractions, No use of accessory muscles and clear to auscultation bilaterally EFFORT & INSPECTION: Yes symmetric chest movement AUSCULTATION: clear to auscultation bilaterally Cardio: COMMON NORMALS: regular rate, regular rhythm, S1 normal heart sound present, S2 normal heart sound present, No gallops present (Cardio), No murmurs present (Cardio), No rub (Cardio) and Peripheral pulses 2+ throughout RATE: regular rate RHYTHM: regular rhythm HEART SOUNDS: S1 normal heart sound present and S2 normal heart sound present PERIPHERAL PULSES: Peripheral pulses 2+ throughout GI: COMMON NORMALS: Normal to inspection, nondistended, normoactive bowel sounds present, Soft to palpation, non-tender, No hepatosplenomegaly present and no masses AUSCULTATION: Yes normoactive bowel sounds PALPATION: Yes Soft to palpation and Yes No hepatosplenomegaly present RECTAL EXAM: deferred Extremity: COMMON NORMALS: no clubbing, cyanosis or edema and no pedal edema Neuro: COMMON NORMALS: patient oriented x3 Discharge Data Studies Completed and Pending Completed Studies During Hospitalization Category Date Time Status CTA chest [CT angio chest PE protcl [id number]] Urgent Cat Scan 07/09/21 18:46 Completed XR chest 1V portable [id number] Stat Exams 07/09/21 17:51 Completed CV. echo complete* [id number] Routine Ultrasound 07/10/21 04:37 Completed Pending at discharge Category Date Time Status PRESCRIPTION CLERK request for service Routine Exams 07/10/21 08:14 Ordered PRESCRIPTION CLERK request for service Routine Exams 07/10/21 10:00 Ordered Radiology Impressions Chest X-Ray 07/09/21 17:51 IMPRESSION: 1. Negative for infiltrate 2. Mild cardiomegaly. Chest CTA 07/09/21 18:46 IMPRESSION: 1. Negative for pulmonary embolus or airspace infiltrate. 2. Hepatic steatosis. 3. Emphysematous changes. 4. Minimal coronary artery atherosclerotic calcifications. 5. Cholecystectomy. 6. Scattered prominent mediastinal lymph nodes measuring up to 9 mm, nonspecific. Laboratory Results WBC 11.0 10^3/uL (4.0-10.0) H 07/10/21 03:45 RBC 5.00 10^6/uL (4.1-5.3) 07/10/21 03:45 Hgb 15.7 g/dL (11.5-15.3) H 07/10/21 03:45 Hct 46.3 % (37.0-47.0) 07/10/21 03:45 MCV 92.6 fl (81-99) 07/10/21 03:45 MCH 31.4 pg (28.0-34.0) 07/10/21 03:45 MCHC 33.9 g/dL (30.0-36.0) 07/10/21 03:45 RDW 13.2 % (12.1-15.1) 07/10/21 03:45 Plt Count 201 10^3/cmm (130-400) 07/10/21 03:45 MPV 10.8 fL (7.4-10.4) H 07/10/21 03:45 Neut % (Auto) 85.6 % 07/10/21 03:45 Lymph % (Auto) 12.8 % 07/10/21 03:45 Bond % (Auto) 0.9 % 07/10/21 03:45 Eos % (Auto) 0.0 % 07/10/21 03:45 Baso % (Auto) 0.3 % 07/10/21 03:45 Neut # (Auto) 9.46 10^3/uL (1.8-7.7) H 07/10/21 03:45 Lymph # (Auto) 1.4 10^3/uL (0.8-4.8) 07/10/21 03:45 Bond # (Auto) 0.1 10^3/uL (0.2-0.9) L 07/10/21 03:45 Eos # (Auto) 0.0 10^3/uL (0.0-0.8) 07/10/21 03:45 Baso # (Auto) 0.0 10^3/uL (0.0-0.1) 07/10/21 03:45 Nucleated RBC % (auto) 0 % 07/10/21 03:45 Nucleated RBCs # 0.0 /100WBC 07/10/21 03:45 D-Dimer 0.40 ug/mIFEU (0-0.59) 07/10/21 03:45 Sodium 137 mmol/L (136-145) 07/10/21 03:45 Potassium 4.2 mmol/L (3.5-5.1) 07/10/21 03:45 Chloride 97 mmol/L (98-107) L 07/10/21 03:45 Carbon Dioxide 19 mmol/L (22-29) L 07/10/21 03:45 Anion Gap 25.2 (5-19) H 07/10/21 03:45 BUN 14 mg/dL (6-20) 07/10/21 03:45 Creatinine 0.8 mg/dL (0.5-0.9) 07/10/21 03:45 GFR Calculation 74.5 mL/min (90-130) L 07/10/21 03:45 Glucose 314 mg/dL (65-115) H 07/10/21 03:45 POC Glucose 197 mg/dL (70-110) H 07/11/21 06:38 Calculated Osmolality 296 mOsm/kg (285-295) H 07/10/21 03:45 Calcium 10.3 mg/dL (8.5-10.5) 07/10/21 03:45 Magnesium 1.8 mg/dL (1.7-2.3) 07/10/21 03:45 Total Bilirubin 0.3 mg/dL (0.15-1.2) 07/09/21 17:54 AST 39 U/L (0-32) H 07/09/21 17:54 ALT 29 U/L (0-33) 07/09/21 17:54 Alkaline Phosphatase 66 IU/L (35-105) 07/09/21 17:54 Troponin T Baseline 178 ng/L (0-10) H* 07/09/21 17:54 Troponin T 120 Minute 247.2 ng/L (0-10) H 07/09/21 20:46 Delta Troponin T 69.2 ABS# (0-10) H* 07/09/21 20:46 Troponin T Hi Sens 6Hr 330.7 ng/L (0-10) H 07/09/21 23:29 Troponin T Hi Sens 6Hr Delta 152.7 ng/L (0-12) H* 07/09/21 23:29 NT-Pro-B Natriuret Pep 1361 pg/mL (0-125) H 07/09/21 17:54 Total Protein 8.0 g/dL (6.6-8.7) 07/09/21 17:54 Albumin 4.9 g/dL (3.5-5.2) 07/09/21 17:54 Globulin 3.1 g/dL (1.3-4.6) 07/09/21 17:54 Triglycerides 449 mg/dL (0-150) H 07/10/21 03:45 Cholesterol 294 mg/dL (0-200) H 07/10/21 03:45 LDL Cholesterol Direct 180 mg/dL (0-100) H 07/10/21 03:45 LDL Cholesterol, Calc Not Reportable 07/10/21 03:45 HDL Cholesterol 45 mg/dL (60-100) L 07/10/21 03:45 LDL/HDL Ratio Not Reportable 07/10/21 03:45 Cholesterol/HDL Ratio 6.53 mg/dL (0.0-4.40) H 07/10/21 03:45 TSH 1.06 uIU/mL (0.27-4.20) 07/09/21 20:46 Free T4 1.13 ng/dL (0.82-1.77) 07/09/21 20:46 Vitals Last Vital Signs Temp 98 F 07/11/21 04:15 Pulse 84 07/11/21 06:00 Resp 18 07/11/21 04:15 BP 140/73 07/11/21 04:15 Pulse Ox 94 07/11/21 04:15 Discharge Plan Discharge Patient Disposition: Home Condition: Stable Prescriptions: New clopidogrel 75 mg Tablet 75 mg PO DAILY 30 Days Qty: 30 3RF aspirin 81 mg Tablet,Delayed Release (Dr/Ec) 81 mg PO DAILY 30 Days Qty: 30 3RF nitroglycerin 0.4 mg Tablet, Sublingual 0.4 mg sublingual Q5M PRN (Reason: Chest Pain) 30 Days Qty: 30 0RF metoprolol succinate 25 mg Tablet Extended Release 24 Hr 25 mg PO DAILY 30 Days Qty: 30 3RF nicotine 7 mg/24 hr Patch 24 Hour 1 patch transdermal DAILY 30 Days Qty: 30 0RF simvastatin 20 mg tablet 20 mg PO DAILY Qty: 30 3RF Continued hydrochlorothiazide 25 mg tablet 25 mg PO DAILY 0RF montelukast 10 mg tablet 10 mg PO DAILY 0RF meloxicam 15 mg tablet 25 mg PO DAILY 0RF budesonide-formoterol 160-4.5 mcg/actuation HFA aerosol inhaler 2 puff INHALATION DIRECTED PRN (Reason: Shortness Of Breath) 0RF Symbicort 1 puff inhalation DAILY 0RF Rx Instructions: 160/4.5mcg azelastine 137 mcg (0.1 %) aerosol,spray 2 spray INTRANASAL BID 0RF sumatriptan succinate 50 mg tablet 50 mg PO DIRECTED PRN (Reason: Migraine Headache) 0RF Discontinued atenolol 25 mg tablet 25 mg PO DAILY 0RF Discharge Orders: Discharge Order (Routine); Ordered 07/11/21 Ordered By: Radu Rodriguez Referrals: Spenser Schneider M.D [Physician] - 08/14/21 2:15 pm (They are located now in the [facility]) Liliana Winters FNP [Primary Care Provider] - 07/16/21 10:30 am ([facility] ) Discharge Diet: Diabetic Discharge Activity: Resume usual activity and Limit activity as instructed Patient Instructions: Metoprolol (By mouth) (Lopressor, Toprol XL), Aspirin (By mouth), Nicotine (Absorbed through the skin) (Nicoderm CQ, Nicoderm CQ..., Nitroglycerin, Rapid Release (By mouth), Simvastatin (By mouth) (Zocor), Clopidogrel (By mouth) (Plavix), Meal Planning with Diabetes Exchanges (GEN), Chest Pain Stoplight, Opioid Safety, Post Angiogram Home Care Instructions Discharge Attestations Time Spent in Discharge Care*: greater than 30 min Specific Discharge Activities: educating patient, educating and/or supporting family/caregiver, discussing with pcp/other providers, discussing with case folder/social workers/dc planners, documenting/other paperwork and evaluating patient/reviewing data Status at Discharge: Cognitive status at discharge: cognitively intact , Behavioral status at discharge: cooperative , Functional status at discharge: independent ambulation , Overall status at discharge: patient is back to baseline Quality Metrics Clinical Quality Measures [ No reported AMI, CVA or VTE this stay] Coding Level of Care Code Acute Chg FW DC note Exam Comprehensive Diagnoses Non-ST elevation CT (NSTEMI) I21.4
--- NOTE | 2021-07-11 08:08 | PM.PN ---
Subjective Subjective: Patient is doing well. Denies complaints of chest pain or shortness of breath Vitals/I&O/Wt Last Vital Signs Temp 98 F 07/11/21 04:15 Pulse 84 07/11/21 06:00 Resp 18 07/11/21 04:15 BP 140/73 07/11/21 04:15 Pulse Ox 94 07/11/21 04:15 07/10/21 07/11/21 07/11/21 22:59 06:59 14:59 Intake Total 120 / 120 1300 / 1420 Balance 120 / 120 1300 / 1420 Weight last 48 hrs Weight 160 lb Weight 175 lb Physical Exam Narrative: GENERAL: Patient is alert, awake and oriented x3. [] NECK: No jugular vein distension. [] HEENT: No cyanosis. No icterus. No pallor. [] HEART: Regular S1 and S2. No murmur, rub or gallop. [] LUNGS: Clear to auscultate bilaterally. [] ABDOMEN: Soft, nontender and nondistended. Positive bowel sounds. No guarding, rebound or tenderness. [] CENTRAL NERVOUS SYSTEM: Grossly nonfocal. [] EXTREMITIES: Lower extremities with 1+ edema bilaterally. Pulses palpable in the lower extremities, both dorsalis pedis and posterior tibial. [] Data : 07/10/21 03:45 07/10/21 03:45 A&P Assessment and plan (1) Non-ST elevation [place] (NSTEMI): (2) COPD (chronic obstructive pulmonary disease): (3) Hypertension: Status: Acute (4) Diabetes: Status: Acute Plan Patient had typical chest pain symptoms and has multiple coronary artery disease risk factors. She had significant troponin elevation consistent with non-ST elevation NH.Coronary angiogram showed severe Left circumflex artery stenosis that was treated with NICO X 1 Continue aspirin and Plavix. echo showed preserved LV systolic function Smoking cessation strongly advised. Thank you for involving us with care of this patient. Patient is stable to be discharged from cardiology standpoint. Please call with questions. Attestations Medical Necessity Statement*: Care expected to cross 2 midnights. Coding Level of Care Code Acute Clinical Application Specialist for Mauro Taylor Diagnoses Non-ST elevation NH (NSTEMI) I21.4 COPD (chronic obstructive pulmonary disease) J44.9 Hypertension I10 Diabetes E11.9
[2021-07-11 08:30] VITALS: BP 151/96; PULSE 96; RESP 18; O2SAT 98
[2021-07-11] MEDS: clopidogrel 75 mg Tablet PO (08:33)
[2021-07-11] MEDS: sennosides-docusate Tablet 1 TAB PO (08:33)
[2021-07-11] MEDS: montelukast sodium 10 mg Tablet PO (08:33)
[2021-07-11] MEDS: metoprolol succinate ER (24 HR) 25 mg Tablet PO (08:33)
[2021-07-11] MEDS: aspirin 81 mg EC Tablet PO (08:33)
[2021-07-11] MEDS: hydroCHLOROthiazide 25 mg Tablet PO (08:33)
[2021-07-11 08:53] VITALS: BP 151/96; PULSE 96; RESP 18; O2SAT 98
[2021-07-11 09:02] VITALS: PULSE 102; RESP 17; O2SAT 95
--- NOTE | 2021-07-11 09:40 | PC.NURSE ---
Discharge Note Patient discharged to Home via private vehicle accompanied by spouse. Discharge instructions reviewed with patient and/or maintenance representative. Mobile pharmacy medications and/or prescriptions provided. All appointment made as well as reviewed with patient and Belongings/home medications returned. Patient verbalized understanding of all instructions reviewed
== END 2021-07-11 09:37 | disposition home or self-care (01) | DRG 247 ==
LOC: ER 20:24 → CSU 23:35
PROVIDERS: Internal Medicine; Admitting Provider Internal Medicine; Emergency Provider Emergency Medicine; PCP Nurse Practitioner Family; Visit Provider Internal Medicine
PROC: 027034Z Dilation of Coronary Artery, One Artery with Drug-eluting Intraluminal Device, Percutaneous Approach (ICD-10-PCS; principal; 2021-07-10 12:00)
PROC: 027034Z Dilation of Coronary Artery, One Artery with Drug-eluting Intraluminal Device, Percutaneous Approach (ICD-10-PCS; 2021-07-10 12:00)
DX: I21.4 Non-ST elevation (NSTEMI) myocardial infarction (principal); I25.10 Atherosclerotic heart disease of native coronary artery without angina pectoris; J44.9 Chronic obstructive pulmonary disease, unspecified; R59.0 Localized enlarged lymph nodes; F17.210 Nicotine dependence, cigarettes, uncomplicated; E11.9 Type 2 diabetes mellitus without complications; I10 Essential (primary) hypertension; E66.9 Obesity, unspecified; Z68.31 Body mass index [BMI] 31.0-31.9, adult; E78.5 Hyperlipidemia, unspecified; Z82.49 Family history of ischemic heart disease and other diseases of the circulatory system
CPT/HCPCS: 36415; 36416; 71045; 71275; 80048; 80053; 80061; 82962; 83721; 83735; 83880; 84439; 84443; 84484; 85025; 85347; 85378; 93005; 93306; 93454; 96372; 96374; 96375; 99285; C1725; C1769; C1874; C1887; C1894; C9600; J0360; J1200; J1644; J1650; J1815; J2250; J2270; J2405; J2930; J3010; J3490; J7030; Q9967

== ENCOUNTER 2024-01-24 17:49 | Emergency (ER) | payer MEDICAID, SELFPAY ==
[2024-01-24 17:55] VITALS: BP 160/70; PULSE 99; RESP 15; TEMP 36.6; O2SAT 100; BMI 28.3
[2024-01-24 18:37] VITALS: BP 165/99; PULSE 99; RESP 18; O2SAT 100
--- NOTE | 2024-01-24 18:46 | ED_ITS ---
HPI - SOB/Dyspnea General: Chief Complaint: Shortness of Breath/Dyspnea Stated Complaint: Stage 4, sob, Time Seen by Provider: 01/24/24 18:45 History of Present Illness: HPI Narrative: 58-year-old female comes in today with s ome shortness of breath and dyspnea. Patient reports that she is always short of breath and is not here for that reason. Patient has some increased anxiety and wanted clarification on when she could take her anxiety medication and when she can take her pain medication. Patient was told when she was recently discharged from the hospital that she should not be taking them both together and she should wait a significant amount of time. Patient had taken one of her oxycodone early this morning and was anxious this evening and was really wanting to take her alprazolam. Patient appears nontoxic. Patient has a history of respiratory failure and stage IV lung cancer. Patient takes IR oxycodone as needed for pain, and alprazolam as needed for anxiety. Patient denies any suicidal ideation or attempt. Related Data Home Medications Medication Instructions Recorded Confirmed Symbicort 1 puff inhalation DAILY 07/09/21 07/10/21 azelastine 137 mcg (0.1 %) nasal 2 spray intranasal BID 07/09/21 07/09/21 spray budesonide-formoterol HFA 160 2 puff inhalation DIRECTED PRN 07/09/21 07/09/21 mcg-4.5 mcg/actuation aerosol Shortness Of Breath inhaler hydrochlorothiazide 25 mg tablet 25 mg PO DAILY 07/09/21 07/09/21 meloxicam 15 mg tablet 25 mg PO DAILY 07/09/21 07/09/21 montelukast 10 mg tablet 10 mg PO DAILY 07/09/21 07/09/21 sumatriptan succinate 50 mg tablet 50 mg PO DIRECTED PRN Migraine 07/09/21 07/09/21 Headache Previous Rx's Medication Instructions Recorded aspirin 81 mg tablet,delayed 81 mg PO DAILY 30 days #30 tabs 07/11/21 release clopidogrel 75 mg tablet 75 mg PO DAILY 30 days #30 tabs 07/11/21 metoprolol succinate 25 mg 25 mg PO DAILY 30 days #30 tabs 07/11/21 tablet,extended release 24 hr simvastatin 20 mg tablet 20 mg PO DAILY #30 tabs 07/11/21 Allergies Allergy/AdvReac Type Severity Reaction Status Date / Time amoxicillin Allergy ALGY-Rash Verified 07/10/21 00:24 Review of Systems General: Reports: 10 or more systems reviewed and unremarkable except in HPI and below Psych: Reports: anxiety PFSH ED PFSH: Medical History COPD (chronic obstructive pulmonary disease) Non-ST elevation [place] (NSTEMI) Family History Other CAD (coronary artery disease) Physical Exam Const: COMMON NORMALS: alert HENMT: COMMON NORMALS: normocephalic HEAD & SCALP: normocephalic Neck/C-Spine: COMMON NORMALS: full ROM Resp: COMMON NORMALS: normal respiratory effort Cardio: COMMON NORMALS: regular rate RATE: regular rate Back/Pelvis: COMMON NORMALS: thoracic and lumbar spine normal to inspection Extremity: COMMON NORMALS: full ROM Neuro: SENSORIUM/ORIENTATION: Yes alert Skin: COMMON NORMALS: turgor normal GENERAL SKIN EXAM: turgor normal Course Vital Signs: Vital signs: Vital Signs Temperature 97.9 F 01/24/24 17:55 Pulse Rate 98 01/24/24 18:53 Respiratory Rate 18 01/24/24 18:37 Blood Pressure 164/97 01/24/24 18:53 Pulse Oximetry 100 01/24/24 18:53 Oxygen Delivery Me thod Nasal Cannula 01/24/24 18:37 Oxygen Flow Rate 2 01/24/24 18:37 MDM - SOB/Dyspnea Medical Decision Making 58-year-old female comes in today for concerns of anxiety. Patient actually came in wanting clarification on when she can use her anxiety medication and when she can use her oxycodone. Patient has stage IV lung cancer. Differential diagnosis anxiety about health, adverse drug effect, respiratory failure, lung cancer. Reviewed medication with patient. Recommended the use of the oxycodone and alprazolam by 6 to 8 hours. Discussed the need for contacting primary care senior sql server developer of medications for further information and recomme ndations of plan. Patient reported understanding agreed to plan. No radiology studies performed this visit Discharge Plan Discharge Patient Disposition: Home Clinical Impression: Anxiety Condition: Stable Prescriptions: No Action hydrochlorothiazide 25 mg tablet 25 mg PO DAILY montelukast 10 mg tablet 10 mg PO DAILY meloxicam 15 mg tablet 25 mg PO DAILY budesonide-formoterol 160-4.5 mcg/actuation HFA aerosol inhaler 2 puff INHALATION DIRECTED PRN (Reason: Shortness Of Breath) Symbicort 1 puff inhalation DAILY Rx Instructions: 160/4.5mcg azelastine 137 mcg (0.1 %) aerosol,spray 2 spray INTRANASAL BID sumatriptan succinate 50 mg tablet 50 mg PO DIRECTED PRN (Reason: Migraine Headache) clopidogrel 75 mg Tablet 75 mg PO DAILY 30 Days Qty: 30 3RF aspirin 81 mg Tablet,Delayed Release (Dr/Ec) 81 mg PO DAILY 30 Days Qty: 30 3RF metoprolol succinate 25 mg Tablet Extended Release 24 Hr 25 mg PO DAILY 30 Days Qty: 30 3RF simvastatin 20 mg tablet 20 mg PO DAILY Qty: 30 3RF Discharge Orders: Discharge ED (Routine); Ordered 01/24/24 Ordered By: Tony Pan Referrals: Liliana Winters FNP [Primary Care Provider] - Discharge Diet: Usual diet Discharge Activity: Increase activity as tolerated Patient Instructions: Opioid Safety Activity Restrictions/Additional Instructions: Follow-up with primary care for further instructions or medications. Return to ED for new concerns. Coding Level of Care Code ED Strategic Partnership Specialist for Mauro Taylor
[2024-01-24 18:53] VITALS: BP 164/97; PULSE 98; O2SAT 100
== END 2024-01-24 18:54 | disposition home or self-care (01) ==
PROVIDERS: Emergency Provider Nurse Practitioner Family; PCP Nurse Practitioner Family
DX: F41.9 Anxiety disorder, unspecified (principal); Z79.02 Long term (current) use of antithrombotics/antiplatelets; Z79.82 Long term (current) use of aspirin; J44.9 Chronic obstructive pulmonary disease, unspecified; I25.2 Old myocardial infarction
CPT/HCPCS: 99282